=== PATIENT | male | born 1995 | race Caucasian/White ===

== ENCOUNTER → 2017-09-11 | Outpatient (CLI) | payer BC, OTHER ==
[~2017-09-11] MED LIST: ADAL40KI SC; ADVIN25/60 INH
== END | disposition home or self-care (01) ==
LOC: C.RDSM 08:00
PROVIDERS: ATTEND Orthopaedic Surgery Sports Medicine
DX: M79.671 Pain in right foot (principal); Z91.018 Allergy to other foods; Z91.010 Allergy to peanuts

== ENCOUNTER → 2017-10-01 | Outpatient (CLI) | payer BC, OTHER ==
--- NOTE | 2017-10-01 13:51 | DIAGNOSTIC IMAGING REPORT ---
R FOOT MIN 3 VIEWS HISTORY: 22 years-old Male RIGHT FOOT PAIN acute right foot pain COMPARISON: Right foot radiographs 09/11/2017 TECHNIQUE: 3 views of the right foot FINDINGS: There is no acute fracture, dislocation or significant degenerative changes. Midfoot alignment is anatomic. No stress fracture or tarsal coalition identified. Soft tissues are unremarkable without opaque foreign body. IMPRESSION: No acute bony abnormality. The above report was generated using voice recognition software. It may contain grammatical, syntax or spelling errors. Electronically signed by: Soham Mccord M.D. 10/01/2017 1:50 PM Dictated Date/Time: 10/01/2017 1:48 PM
== END | disposition home or self-care (01) ==
LOC: C.RDSM 13:40
PROVIDERS: ATTEND Family Medicine
DX: M79.671 Pain in right foot (principal)